=== PATIENT | female | born 1945 | race Caucasian/White ===

== ENCOUNTER 2016-05-13 14:17 | Outpatient (CLI) | payer MEDICARE | END 2016-05-13 14:18 | disposition home or self-care (01) | DX: M17.11 Unilateral primary osteoarthritis, right knee (principal) ==

== ENCOUNTER 2016-05-20 08:00 | Outpatient (CLI) | payer MEDICARE | END 2016-05-20 08:01 | disposition home or self-care (01) | DX: R73.01 Impaired fasting glucose (principal); K22.8 Other specified diseases of esophagus; I10 Essential (primary) hypertension; R22.1 Localized swelling, mass and lump, neck ==

== ENCOUNTER 2016-05-27 13:16 | Outpatient (CLI) | payer MEDICARE | END 2016-05-27 13:17 | disposition home or self-care (01) | DX: K22.8 Other specified diseases of esophagus (principal) ==

== ENCOUNTER 2016-07-05 06:48 | Outpatient (CLI) | payer MEDICARE | END 2016-07-05 06:49 | disposition EMS.NT | DX: R53.1 Weakness (principal) ==

== ENCOUNTER 2016-11-21 14:00 | Outpatient (CLI) | payer MEDICARE ==
[2016-11-21 18:37] LABS: ALBUMIN/GLOBULIN RATIO 1.8 (1.0-2.2); BILIRUBIN,TOTAL 0.6 mg/dL (0.2-1.0); CALCIUM 8.9 mg/dL (8.5-10.3); CREATININE 0.9 mg/dL (0.4-1.0); POTASSIUM 3.5 mmol/L (3.5-5.0); TOTAL PROTEIN 6.4 g/dL (6.7-8.2)
== END 2016-11-21 14:01 | disposition home or self-care (01) ==
LOC: LAB.F 14:00
PROVIDERS: ATTEND Nurse Practitioner Family
DX: I10 Essential (primary) hypertension (principal)
CPT/HCPCS: 36415; 80053

== ENCOUNTER 2017-04-09 13:28 | Outpatient (CLI) | payer MEDICARE ==
--- NOTE | 2017-04-10 11:25 | XRAY Report ---
DATE OF SERVICE: 04/09/2017 CERVICAL SPINE COMPLETE: 04/09/2017 COMPARISON: None. INDICATION: Upper extremity neuropathy. TECHNIQUE: Six views of the cervical spine. FINDINGS: There is a mild to moderate disk space narrowing at C3-C4, C4-C5 and C6-C7. There are multilevel moderate anterior osteophytes. There is no prevertebral soft tissue swelling. The lateral masses appear symmetric. No evidence of acute fracture. There is narrowing of the bony neural foramina as follows: RIGHT: C3-C4, moderate, C4-C5, mild, C5-C6, moderate to severe. LEFT: C3-C4, mild, C4-C5, moderate to severe. C5-C6, mild to moderate. C6-C7, moderate to severe. IMPRESSION: MODERATE TO SEVERE CERVICAL SPONDYLOSIS DETAILED ABOVE. TD: 04/10/2017 11:15 LIV
== END 2017-04-09 13:29 | disposition home or self-care (01) ==
LOC: DI.S 13:28
PROVIDERS: ATTEND Nurse Practitioner Family
DX: M47.892 Other spondylosis, cervical region (principal); R53.1 Weakness
CPT/HCPCS: 72050; 93005

== ENCOUNTER 2017-05-28 13:28 | Outpatient (CLI) | payer MEDICARE ==
[2017-05-28 17:04] VITALS: BP 118/80
--- NOTE | 2017-05-29 16:51 | CARDIAC PROCEDURE NOTE ---
DATE OF SERVICE: 05/28/2017 Physician: DONNA Moody PRIMARY CARE PHYSICIAN: DONNA Hauser. PROCEDURE: Cardiac treadmill stress test. PROCEDURE SYMPTOMS: Dyspnea, weakness, and fatigue. CARDIAC RISK FACTORS: Include age, hypertension, hyperlipidemia, and strong family history of CVAs. PREVIOUS CARDIAC PROCEDURES: Include echocardiogram and a treadmill test. CLINICAL HISTORY: A 71-year-old female without known coronary artery disease. She describes herself as moderately active. INITIAL RESTING VITAL SIGNS: BP 118/80, heart rate 80, height 62 inches, weight 188, BMI 33.0. PROCEDURE AND FINDINGS: Patient identity and date verified. Consent signed. The patient performed treadmill exercise using a Alex protocol, completing 4 minutes 18 seconds, and completing an estimated workload of 7.0 metabolic equivalents. ( predicted time was 4:30 to 5:45.) Maximal blood pressure was 164/84 with a heart rate of 132 beats per minute or 90% of maximum predicted heart rate for age. The blood pressure response to exercise was within normal limits. The patient stopped because of symptoms of tiredness and breathlessness. The resting ECG demonstrated normal sinus rhythm with flat T waves. Maximum ST segment depression was 0. The blood pressure response to exercise was within normal limits. The patient stopped because of tiredness and breathlessness. The resting ECG demonstrated normal sinus rhythm with poor R-wave progression and flat T waves. Maximum ST segment depression was 0. There was one 5-beat run of SVT at a rate of 180 in recovery and 1 isolated PVC. The patient states that she occasionally feels some heart palpitations. FINAL IMPRESSIONS 1. Negative stress electrocardiogram for ischemia by electrocardiographic criteria. 2. Negative stress test clinically for angina. 3. One 5-beat run of rapid SVT. 4. Under-performed predicted sedentary time of 4 minutes 30 seconds. TD: 05/29/2017 16:49 [facility]
--- NOTE | 2017-06-05 10:07 | XRAY Report ---
CARDIOVASCULAR TREADMILL TEST There was no imaging performed for this exam. Procedure notes and results available in the EMR. LIV
== END 2017-05-28 13:29 | disposition home or self-care (01) ==
LOC: DI 13:28
PROVIDERS: ATTEND Nurse Practitioner Family
DX: R06.02 Shortness of breath (principal); R07.9 Chest pain, unspecified; I10 Essential (primary) hypertension; E78.5 Hyperlipidemia, unspecified; Z82.3 Family history of stroke
CPT/HCPCS: 93017

== ENCOUNTER 2017-06-11 08:34 | Outpatient (CLI) | payer MEDICARE ==
[2017-06-11 17:23] LABS: BASOPHILS # (AUTO) 0.1 10^3/uL (0.0-0.1); BASOPHILS % (AUTO) 0.9 %; EOSINOPHILS # (AUTO) 0.4 10^3/uL (0.0-0.7); EOSINOPHILS % (AUTO) 5.3 %; HGB - HEMOGLOBIN 14.1 g/dL (12.0-16.0); LYMPHOCYTES # (AUTO) 1.4 10^3/uL (1.5-3.5); LYMPHOCYTES % (AUTO) 20.8 %; MEAN CORPUSCULAR HEMOGLOBIN 31.5 pg (27.0-31.0); MEAN CORPUSCULAR HGB CONC 33.9 g/dL (32.0-36.0); MEAN PLATELET VOLUME 8.4 fL (7.9-10.8); MONOCYTES # (AUTO) 0.6 10^3/uL (0.0-1.0); MONOCYTES % (AUTO) 8.3 %; NEUTROPHILS # (AUTO) 4.4 10^3/uL (1.5-6.6); NEUTROPHILS % (AUTO) 64.7 %; PLT - PLATELET COUNT 227 10^3/uL (130-450); RED BLOOD COUNT 4.47 10^6/uL (4.20-5.40); WHITE BLOOD COUNT 6.8 x10^3/uL (4.8-10.8)
[2017-06-11 18:31] LABS: HB2 TOTAL 15.1 g/dL; HEMOGLOBIN A1C 0.52 g/dL; HEMOGLOBIN A1C % 5.3 % (4.6-6.2)
[2017-06-11 19:20] LABS: ALBUMIN/GLOBULIN RATIO 1.7 (1.0-2.2); BILIRUBIN,TOTAL 0.7 mg/dL (0.2-1.0); CALCIUM 9.5 mg/dL (8.5-10.3); CREATININE 0.9 mg/dL (0.4-1.0); TOTAL PROTEIN 6.4 g/dL (6.7-8.2)
[2017-06-11 19:26] LABS: CHOL/HDL RATIO 3.7 (<4.4); CHOLESTEROL 131 mg/dL; HDL CHOLESTEROL 35 mg/dL; LDL CHOLESTEROL,CALCULATED 66 mg/dL; LDL/HDL RATIO 1.9 (<4.4); VLDL CHOLESTEROL 30 mg/dL
[2017-06-11 20:12] LABS: % IRON SATURATION 30 % (20-50); IRON 87 ug/dL (28-170); TOTAL IRON BINDING CAPACITY 286 ug/dL (250-450); TRANSFERRIN 204 mg/dL (192-382)
== END 2017-06-11 08:35 | disposition home or self-care (01) ==
LOC: LAB.F 08:34
PROVIDERS: ATTEND Nurse Practitioner Family
DX: I10 Essential (primary) hypertension (principal); E66.9 Obesity, unspecified; R73.01 Impaired fasting glucose; M25.569 Pain in unspecified knee; R06.02 Shortness of breath; R53.83 Other fatigue; R55 Syncope and collapse; R07.9 Chest pain, unspecified
CPT/HCPCS: 36415; 80053; 80061; 82607; 82728; 83036; 83540; 83721; 83880; 84443; 84466; 85025

== ENCOUNTER 2017-06-24 11:17 | Outpatient (CLI) | payer MEDICARE ==
[2017-06-24 18:00] LABS: THYROID STIMULATING HORMONE 2.1 uIU/mL (0.34-5.60)
[2017-06-24 18:02] LABS: FREE T4 (FREE THYROXINE) 0.99 ng/dL (0.58-1.64)
== END 2017-06-24 11:18 | disposition home or self-care (01) ==
LOC: LAB.F 11:17
PROVIDERS: ATTEND Physician Assistant
DX: L65.9 Nonscarring hair loss, unspecified (principal)
CPT/HCPCS: 36415; 84439; 84443

== ENCOUNTER 2017-09-30 16:47 | Outpatient (CLI) | payer MEDICARE ==
--- NOTE | 2017-09-30 22:06 | MRI Report ---
Procedure Date: 09/30/2017 Accession Number: [id number] / [id number] Procedure: MRI - Brain W/O CPT Code: FULL RESULT: EXAM: MRI of the brain without contrast. INDICATION: 72-year-old female with episodes of syncope, weakness and collapse. Please assess. TECHNIQUE: 1. T1 sagittal and fat-saturated T2 coronal. 2. Axial T1 MP rage, FLAIR, T2, T2 star and DWI. COMPARISON: None. FINDINGS: There is mild, generalized, cerebral volume loss with associated, mild, ex-vacuo third/lateral ventriculomegaly. No hydrocephalus. A atgo-xm-ssrewavt amount of white matter disease is identified in the supratentorial brain, manifested as focal and confluent T2 hyperintensities that are scattered throughout the periventricular, deep and subcortical white matter bilaterally. A frontoparietal distribution predominates. Minor, patchy T2 hyperintensity is seen in the noemí. Signal intensity of cortex and white matter is otherwise unremarkable. There appear to be flow voids for the main intracranial arteries. No abnormal diffusion restriction is demonstrated. No evidence of acute or chronic hemorrhage on T2*GRE sequence. Noted is mineralization in the globi pallidi bilaterally. This should not be mistaken as old hemorrhage. No abnormal extra-axial fluid collection. No mass effect or midline shift. Limited assessment of the orbits reveals no gross pathology. There is minor mucosal thickening scattered throughout the ethmoid air cells. There appears to be minor mucosal thickening in the posterior recess of the right maxillary sinus. The paranasal sinuses are otherwise clear. A tiny amount of fluid is seen in both mastoids of uncertain etiology but of doubtful clinical significance. No soft tissue swelling is identified overlying either mastoid and there is no evidence of an obstructing nasopharyngeal mass. Marrow signal intensity in the regional skeletal structures is unremarkable. IMPRESSION: 1. Age appropriate senescent change. 2. A vmsi-rb-lgrivuqu amount of white matter disease is identified, likely representing chronic microangiopathy. 3. No other significant intracranial findings on this unenhanced brain MRI. In particular, no evidence of infarction, hemorrhage, space-occupying mass lesion or other acute/subacute intracranial pathology.
== END 2017-09-30 16:48 | disposition home or self-care (01) ==
LOC: DI 16:47
PROVIDERS: ATTEND Nurse Practitioner Family
DX: R55 Syncope and collapse (principal); R53.1 Weakness; R90.82 White matter disease, unspecified
CPT/HCPCS: 70551

== ENCOUNTER 2018-06-30 09:48 | Outpatient (CLI) | payer MEDICARE ==
[2018-06-30 18:29] LABS: BASOPHILS # (AUTO) 0.1 10^3/uL (0.0-0.1); EOSINOPHILS # (AUTO) 0.5 10^3/uL (0.0-0.7); EOSINOPHILS % (AUTO) 6.9 %; HGB - HEMOGLOBIN 14.4 g/dL (12.0-16.0); LYMPHOCYTES # (AUTO) 1.6 10^3/uL (1.5-3.5); LYMPHOCYTES % (AUTO) 24.2 %; MEAN CORPUSCULAR HEMOGLOBIN 32.4 pg (27.0-31.0); MEAN CORPUSCULAR HGB CONC 34.3 g/dL (32.0-36.0); MEAN CORPUSCULAR VOLUME 94.7 fL (81.0-99.0); MEAN PLATELET VOLUME 8.9 fL (7.9-10.8); MONOCYTES # (AUTO) 0.6 10^3/uL (0.0-1.0); MONOCYTES % (AUTO) 8.7 %; NEUTROPHILS % (AUTO) 59.2 %; PLT - PLATELET COUNT 220 10^3/uL (130-450); RED BLOOD COUNT 4.43 10^6/uL (4.20-5.40); RED CELL DISTRIBUTION WIDTH 13.2 % (12.0-15.0); WHITE BLOOD COUNT 6.7 x10^3/uL (4.8-10.8)
[2018-06-30 18:46] LABS: HB2 TOTAL 15.6 g/dL; HEMOGLOBIN A1C 0.55 g/dL; HEMOGLOBIN A1C % 5.4 % (4.6-6.2)
[2018-06-30 18:49] LABS: ALBUMIN 4.1 g/dL (3.2-5.5); ALBUMIN/GLOBULIN RATIO 1.8 (1.0-2.2); ALKALINE PHOSPHATASE 58 IU/L (42-121); ALT ALANINE AMINOTRANSFERASE 21 IU/L (10-60); AST ASPARTATE AMINOTRANSFERASE 21 IU/L (10-42); BILIRUBIN,TOTAL 1.1 mg/dL (0.2-1.0); BUN - BLOOD UREA NITROGEN 20 mg/dL (6-20); CALCIUM 9.6 mg/dL (8.5-10.3); CARBON DIOXIDE - CO2 28 mmol/L (21-32); CHLORIDE 103 mmol/L (101-111); CHOL/HDL RATIO 3.6 (<4.4); CHOLESTEROL 131 mg/dL; CREATININE 0.9 mg/dL (0.4-1.0); GFR - MDRD 61 (>89); GLUCOSE 117 mg/dL (70-100); HDL CHOLESTEROL 36 mg/dL; LDL CHOLESTEROL,CALCULATED 62 mg/dL; LDL/HDL RATIO 1.7 (<4.4); SODIUM 139 mmol/L (135-145); TOTAL PROTEIN 6.4 g/dL (6.7-8.2); VLDL CHOLESTEROL 33 mg/dL
== END 2018-06-30 09:49 | disposition home or self-care (01) ==
LOC: LAB.F 09:48
PROVIDERS: ATTEND Nurse Practitioner
DX: Z00.00 Encounter for general adult medical examination without abnormal findings (principal); I10 Essential (primary) hypertension; E78.2 Mixed hyperlipidemia
CPT/HCPCS: 36415; 80053; 80061; 83036; 83721; 84443; 85025

== ENCOUNTER 2018-07-01 15:30 | Outpatient (CLI) | payer MEDICARE ==
--- NOTE | 2018-07-02 10:18 | XRAY Report ---
Reason: KNEE PAIN CHRONIC RIGHT LEFT Procedure Date: 07/01/2018 Accession Number: [id number] / [id number] Procedure: XR - Knee 3 View BILAT CPT Code: FULL RESULT: EXAMS: 1. Right Knee Radiography 2. Left Knee Radiography EXAM DATE:07/01/2018 03:52 PM. CLINICAL HISTORY:KNEE PAIN CHRONIC RIGHT LEFT. COMPARISON: KNEE 3 VIEW RT 05/13/2016 2:28 PM (report not presently available). TECHNIQUE: 3 views each. FINDINGS: Right Knee: Bones: Normal. No fractures or bone lesions. Joints: Normal. No effusion. No subluxations. Soft Tissues: Normal. No soft tissue swelling. Left Knee: Bones: Normal. No fractures or bone lesions. Joints: Normal. No effusion. No subluxations. Soft Tissues: Normal. No soft tissue swelling. IMPRESSION: No acute bony abnormality. RADIA
== END 2018-07-01 15:31 | disposition home or self-care (01) ==
LOC: DI 15:30
PROVIDERS: ATTEND Nurse Practitioner
DX: M25.562 Pain in left knee (principal); M25.561 Pain in right knee; G89.29 Other chronic pain

== ENCOUNTER 2018-07-09 12:46 | Outpatient (CLI) | payer MEDICARE ==
--- NOTE | 2018-07-09 13:47 | CT Report ---
Reason: BLURRED VISION, INTERMITTENT, HTN Procedure Date: 07/09/2018 Accession Number: [id number] / [id number] Procedure: CT - HEAD WO CPT Code: FULL RESULT: EXAM: CT HEAD EXAM DATE: 07/09/2018 01:07 PM. CLINICAL HISTORY: Blurred vision, intermittent, hypertension. COMPARISON: BRAIN W/O 09/30/2017 4:50 PM. TECHNIQUE: Multiaxial CT images were obtained from the foramen magnum to the vertex. Reformats: Sagittal and coronal. IV contrast: None. In accordance with CT protocol optimization, one or more of the following dose reduction techniques were utilized for this exam: automated exposure control, adjustment of mA and/or KV based on patient size, or use of iterative reconstructive technique. FINDINGS: Parenchyma: No intraparenchymal hemorrhage. No evidence of mass, midline shift, or CT findings of infarction. Du-white differentiation is distinct. There is patchy low density in the bifrontal periventricular white matter consistent with chronic microvascular ischemic change. This is also noted on the comparison MRI. Extraaxial Spaces: Normal for age. No subdural or epidural collections identified. Ventricles: Normal in size and position. Sinuses and Orbits: Small air-fluid levels are noted within both maxillary sinuses. Note: Tiny air-fluid level is noted in the right maxillary sinus on MRI of 09/30/2017. No bone dehiscence. Remaining paranasal sinuses are clear. Bones: No evidence of fracture or calvarial defect. Other: There is mild vertebrobasilar dolichoectasia with a high position of the tip of basilar. IMPRESSION: 1. Stable senescent changes. No CT evidence of acute infarction. 2. Mild bilateral maxillary sinusitis. 3. Mild vertebrobasilar dolichoectasia as described with superiorly positioned tip of basilar. 4. If there is clinical concern for potential dysfunction of cranial nerves 3, 4 or 6 given symptoms, recommend dedicated brain and orbital MRI. RADIA
== END 2018-07-09 12:47 | disposition home or self-care (01) ==
LOC: DI 12:46
PROVIDERS: ATTEND Nurse Practitioner
DX: H53.8 Other visual disturbances (principal); I10 Essential (primary) hypertension; J32.0 Chronic maxillary sinusitis
CPT/HCPCS: 70450

== ENCOUNTER 2018-09-09 09:44 | Day surgery (SDC) | payer MEDICARE ==
[2018-09-09] MEDS ORDERED: LACTATED RINGERS 1,000 ML IV ONE (10:25)
[2018-09-09] MEDS ORDERED: LIDO GARGLE 30 ML BOTTLE ONE (11:10)
[2018-09-09] MEDS ORDERED: fentaNYL 250 MCG/5 ML VIAL IVP ONE (11:12)
[2018-09-09] MEDS ORDERED: MIDAZOLAM 2 MG/2 ML VIAL IVP ONE (11:12)
[2018-09-09] MEDS ORDERED: LIDO GARGLE 30 ML BOTTLE TOP ONE (11:18)
[2018-09-09 12:50] VITALS: BP 133/85
== END 2018-09-09 09:45 | disposition home or self-care (01) ==
LOC: SDS 09:44
PROVIDERS: ATTEND Surgery
PROC: 0DJD8ZZ Inspection of Lower Intestinal Tract, Via Natural or Artificial Opening Endoscopic (ICD-10-PCS; principal; 2018-09-09 11:00)
PROC: 0DB58ZX Excision of Esophagus, Via Natural or Artificial Opening Endoscopic, Diagnostic (ICD-10-PCS; 2018-09-09 11:00)
DX: Z12.11 Encounter for screening for malignant neoplasm of colon (principal); K21.0 Gastro-esophageal reflux disease with esophagitis; K64.8 Other hemorrhoids; I10 Essential (primary) hypertension; E66.9 Obesity, unspecified; Z79.899 Other long term (current) drug therapy; Z80.0 Family history of malignant neoplasm of digestive organs; Z68.32 Body mass index [BMI] 32.0-32.9, adult
CPT/HCPCS: 43239; A9270; G0121; J3010; J7120

== ENCOUNTER 2019-05-09 11:44 | Outpatient (CLI) | payer MEDICARE ==
--- NOTE | 2019-05-10 05:33 | XRAY Report ---
Reason: M25.369 KNEE JOINT INSTABILITY LT Procedure Date: 05/09/2019 Accession Number: [id number] / [id number] Procedure: XRS - Knee 2 View LT CPT Code: Final Report FULL RESULT: EXAM: LEFT KNEE RADIOGRAPHY EXAM DATE: 05/09/2019 12:00 PM. CLINICAL HISTORY: M25. 369 KNEE JOINT INSTABILITY LT. COMPARISON: FOOT 2 VIEW LT 05/09/2019 12:14 PM KNEE 3 VIEW BILAT 07/01/2018 3:40 PM. TECHNIQUE: 3 views. FINDINGS: Bones: No acute displaced fractures or suspicious bony lesion. Joints: No dislocation. No significant effusion. Soft Tissues: No significant soft tissue swelling. IMPRESSION: No acute osseous abnormality demonstrated. RADIA
--- NOTE | 2019-05-10 05:39 | XRAY Report ---
Reason: M79.672 FOOT JOINT PAIN LT Procedure Date: 05/09/2019 Accession Number: [id number] / [id number] Procedure: XRS - Foot 2 View LT CPT Code: Final Report FULL RESULT: EXAM: LEFT FOOT RADIOGRAPHY EXAM DATE: 05/09/2019 12:00 PM CLINICAL HISTORY: M79.672 Foot joint pain left. COMPARISON: None. TECHNIQUE: 3 views. FINDINGS: Bones: No acute displaced fractures or suspicious bony lesion. Small plantar calcaneal spur. Joints: There is mild hallux valgus deformity and mild to moderate metatarsus varus primus deformity. There is moderate first MTP degenerative joint disease. There is also moderate degenerative change between the bases of the first and second metatarsals. Soft Tissues: Bunion formation at the first MTP joint. IMPRESSION: No acute osseous abnormality demonstrated. RADIA
== END 2019-05-09 11:45 | disposition home or self-care (01) ==
LOC: DI.S 11:44
PROVIDERS: ATTEND Registered Nurse
DX: M25.362 Other instability, left knee (principal); M79.672 Pain in left foot

== ENCOUNTER 2019-09-15 07:00 | Outpatient (CLI) | payer MEDICARE | END 2019-09-15 23:59 | disposition home or self-care (01) | LOC: LAB.R 07:00 | PROVIDERS: ATTEND Family Medicine | DX: N39.0 Urinary tract infection, site not specified (principal) | CPT/HCPCS: 87086 ==

== ENCOUNTER 2019-09-26 13:48 | Outpatient (CLI) | payer MEDICARE | END 2019-09-26 13:49 | disposition home or self-care (01) | LOC: LAB 13:48 | PROVIDERS: ATTEND Registered Nurse | DX: Z11.59 Encounter for screening for other viral diseases (principal) | CPT/HCPCS: 81599 ==

== ENCOUNTER 2019-10-14 07:35 | Outpatient (CLI) | payer MEDICARE ==
[2019-10-14 15:01] LABS: BASOPHILS # (AUTO) 0.1 10^3/uL (0.0-0.1); BASOPHILS % (AUTO) 0.9 %; EOSINOPHILS # (AUTO) 0.4 10^3/uL (0.0-0.7); EOSINOPHILS % (AUTO) 6.5 %; HGB - HEMOGLOBIN 14.9 g/dL (12.0-16.0); LYMPHOCYTES # (AUTO) 1.5 10^3/uL (1.5-3.5); LYMPHOCYTES % (AUTO) 22.6 %; MEAN CORPUSCULAR HEMOGLOBIN 32.5 pg (27.0-31.0); MEAN CORPUSCULAR HGB CONC 33.9 g/dL (32.0-36.0); MEAN CORPUSCULAR VOLUME 96.1 fL (81.0-99.0); MEAN PLATELET VOLUME 10.5 fL (7.9-10.8); MONOCYTES # (AUTO) 0.7 10^3/uL (0.0-1.0); MONOCYTES % (AUTO) 10.5 %; NEUTROPHILS # (AUTO) 3.9 10^3/uL (1.5-6.6); NEUTROPHILS % (AUTO) 59.2 %; PLT - PLATELET COUNT 200 10^3/uL (130-450); RED BLOOD COUNT 4.58 10^6/uL (4.20-5.40); RED CELL DISTRIBUTION WIDTH 12.8 % (12.0-15.0); WHITE BLOOD COUNT 6.6 x10^3/uL (4.8-10.8)
[2019-10-14 15:37] LABS: ALBUMIN 4.2 g/dL (3.2-5.5); ALBUMIN/GLOBULIN RATIO 2.2 (1.0-2.2); ALKALINE PHOSPHATASE 77 IU/L (42-121); ALT ALANINE AMINOTRANSFERASE 18 IU/L (10-60); AST ASPARTATE AMINOTRANSFERASE 18 IU/L (10-42); BILIRUBIN,TOTAL 0.8 mg/dL (0.2-1.0); BUN - BLOOD UREA NITROGEN 15 mg/dL (6-20); CALCIUM 9.3 mg/dL (8.5-10.3); CARBON DIOXIDE - CO2 25 mmol/L (21-32); CHLORIDE 106 mmol/L (101-111); CHOL/HDL RATIO 4.8 (<4.4); CHOLESTEROL 160 mg/dL; CREATININE 0.9 mg/dL (0.4-1.0); GLUCOSE 119 mg/dL (70-100); HDL CHOLESTEROL 33 mg/dL; LDL CHOLESTEROL,CALCULATED 74 mg/dL; LDL/HDL RATIO 2.2 (<4.4); SODIUM 141 mmol/L (135-145); TOTAL PROTEIN 6.1 g/dL (6.7-8.2); VLDL CHOLESTEROL 53 mg/dL
== END 2019-10-14 07:36 | disposition home or self-care (01) ==
LOC: LAB.S 07:35
PROVIDERS: ATTEND Registered Nurse
DX: I10 Essential (primary) hypertension (principal); E78.2 Mixed hyperlipidemia
CPT/HCPCS: 36415; 80053; 80061; 83721; 84443; 85025

== ENCOUNTER 2019-11-25 08:00 | Outpatient (CLI) | payer MEDICARE | END 2019-11-25 23:59 | disposition home or self-care (01) | LOC: LAB.R 08:00 | PROVIDERS: ATTEND Family Medicine | DX: N30.90 Cystitis, unspecified without hematuria (principal) | CPT/HCPCS: 87086 ==

== ENCOUNTER 2019-12-13 12:11 | Outpatient (CLI) | payer MEDICARE | END 2019-12-13 12:12 | disposition home or self-care (01) | LOC: COV 12:11 | PROVIDERS: ATTEND Family Medicine | DX: R05 Cough (principal); R06.02 Shortness of breath; R53.83 Other fatigue; R09.81 Nasal congestion; Z20.828 Contact with and (suspected) exposure to other viral communicable diseases ==

== ENCOUNTER 2019-12-22 14:35 | Outpatient (CLI) | payer MEDICARE ==
--- NOTE | 2019-12-22 16:16 | Ultrasound Report ---
PROCEDURE: Retroperitoneal INDICATIONS: UTI TECHNIQUE: Real-time scanning was performed of the retroperitoneal organs, with image documentation. COMPARISON: None. FINDINGS: Kidneys: Kidneys are normal in size. Right kidney measures 10.6 cm long; left kidney measures 10.5 cm long. Right renal cortical thickness is 1.4 cm; left renal cortical thickness is 1.3 cm. No julieth d masses, hydronephrosis, or nephrolithiasis. There are bilateral renal cysts, the largest on the rig ht measures 3.7 cm and the largest on the left measures 1.6 cm. Punctate echogenic foci within the le ft lower pole may represent nonobstructing calculi. Pancreas: Visualized portions of the pancreas are sonographically normal. Aorta: Visualized aorta is normal in caliber at 3 cm or less. Iliac arteries: Proximal common iliac arteries are normal in caliber at 2.5 cm or less. IVC: Intrahepatic inferior vena cava is patent. Miscellaneous: No free abdominal fluid. IMPRESSION: 1. No hydronephrosis. 2. Possible nonobstructive left nephrolithiasis versus echogenic appearance. 3. Bilateral simple renal cysts. Reviewed by: Brigette Hudson MD on 12/22/2019 4:15 PM PDT Approved by: Brigette Hudson MD on 12/22/2019 4:15 PM PDT Station ID: [id number]
== END 2019-12-22 14:36 | disposition home or self-care (01) ==
LOC: DI 14:35
PROVIDERS: ATTEND Family Medicine
DX: N39.0 Urinary tract infection, site not specified (principal); N28.1 Cyst of kidney, acquired
CPT/HCPCS: 76770

== ENCOUNTER 2020-01-22 08:00 | Outpatient (CLI) | payer MEDICARE ==
[2020-01-22 17:46] LABS: BILIRUBIN,URINE NEGATIVE (NEGATIVE); GLUCOSE, URINE (UA) 100 mg/dL (NEGATIVE); KETONES,URINE (UA) NEGATIVE (NEGATIVE); LEUKOCYTE ESTERASE, URINE SMALL (NEGATIVE); NITRITE,URINE POSITIVE (NEGATIVE); OCCULT BLOOD,URINE SMALL (NEGATIVE); PH,URINE 5.5 PH (5.0-7.5); PROTEIN,URINE TRACE mg/dL (NEGATIVE); UROBILINOGEN,URINE 2 E.U./dL (NORMAL)
[2020-01-22 17:53] LABS: CLARITY,URINE CLOUDY (CLEAR)
[2020-01-22 17:58] LABS: BACTERIA,URINE Few /HPF (None Seen); SQUAMOUS EPITHELIAL CELL,UR RARE Squamous (<= Few)
== END 2020-01-22 23:59 | disposition home or self-care (01) ==
LOC: LAB.R 08:00
PROVIDERS: ATTEND Physician Assistant Medical
DX: R30.0 Dysuria (principal)
CPT/HCPCS: 81001; 87086

== ENCOUNTER 2020-05-31 08:00 | Outpatient (CLI) | payer MEDICARE ==
[2020-05-31 20:22] LABS: CREATININE,URINE 251.1 mg/dL
[2020-05-31 20:26] LABS: BUN - BLOOD UREA NITROGEN 23 mg/dL (6-20); CALCIUM 8.9 mg/dL (8.5-10.3); CARBON DIOXIDE - CO2 24 mmol/L (21-32); CHLORIDE 106 mmol/L (101-111); CHOL/HDL RATIO 4.5 (<4.4); CHOLESTEROL 147 mg/dL; GFR - MDRD 54 (>89); GLUCOSE 108 mg/dL (70-100); HDL CHOLESTEROL 33 mg/dL; LDL CHOLESTEROL,CALCULATED 72 mg/dL; LDL/HDL RATIO 2.2 (<4.4); POTASSIUM 3.4 mmol/L (3.5-5.0); SODIUM 137 mmol/L (135-145); TRIGLYCERIDES 209 mg/dL; VLDL CHOLESTEROL 42 mg/dL
[2020-05-31 20:31] LABS: ESTIMATED AVERAGE GLUCOSE 108 mg/dL (70-100); HEMOGLOBIN A1c% 5.4 % (4.27-6.07)
== END 2020-05-31 23:59 | disposition home or self-care (01) ==
LOC: LAB.S 08:00
PROVIDERS: ATTEND Physician Assistant Medical
DX: I10 Essential (primary) hypertension (principal); E78.2 Mixed hyperlipidemia; R06.02 Shortness of breath; R30.0 Dysuria; R81 Glycosuria
CPT/HCPCS: 36415; 80048; 80061; 82043; 82570; 83036; 83721; 87086

== ENCOUNTER 2020-10-09 07:55 | Outpatient (CLI) | payer MEDICARE ==
[2020-10-09 17:10] LABS: BASOPHILS # (AUTO) 0.1 10^3/uL (0.0-0.1); BASOPHILS % (AUTO) 0.8 %; EOSINOPHILS # (AUTO) 0.5 10^3/uL (0.0-0.7); EOSINOPHILS % (AUTO) 6.1 %; HCT - HEMATOCRIT 46.7 % (37.0-47.0); HGB - HEMOGLOBIN 15.1 g/dL (12.0-16.0); LYMPHOCYTES # (AUTO) 1.7 10^3/uL (1.5-3.5); MEAN CORPUSCULAR HEMOGLOBIN 31.3 pg (27.0-31.0); MEAN CORPUSCULAR HGB CONC 32.3 g/dL (32.0-36.0); MEAN CORPUSCULAR VOLUME 96.9 fL (81.0-99.0); MEAN PLATELET VOLUME 10.1 fL (7.9-10.8); MONOCYTES # (AUTO) 0.7 10^3/uL (0.0-1.0); MONOCYTES % (AUTO) 9.4 %; NEUTROPHILS # (AUTO) 4.5 10^3/uL (1.5-6.6); NEUTROPHILS % (AUTO) 60.3 %; PLT - PLATELET COUNT 221 10^3/uL (130-450); RED BLOOD COUNT 4.82 10^6/uL (4.20-5.40); RED CELL DISTRIBUTION WIDTH 12.8 % (12.0-15.0); WHITE BLOOD COUNT 7.5 x10^3/uL (4.8-10.8)
[2020-10-09 17:23] LABS: THYROID STIMULATING HORMONE 1.71 uIU/mL (0.34-5.60)
[2020-10-09 17:32] LABS: ALBUMIN 4.1 g/dL (3.2-5.5); ALBUMIN/GLOBULIN RATIO 1.8 (1.0-2.2); ALKALINE PHOSPHATASE 72 IU/L (42-121); ALT ALANINE AMINOTRANSFERASE 19 IU/L (10-60); AST ASPARTATE AMINOTRANSFERASE 17 IU/L (10-42); BILIRUBIN,TOTAL 0.7 mg/dL (0.2-1.0); BUN - BLOOD UREA NITROGEN 12 mg/dL (6-20); CALCIUM 8.9 mg/dL (8.5-10.3); CARBON DIOXIDE - CO2 29 mmol/L (21-32); CHLORIDE 104 mmol/L (101-111); CHOL/HDL RATIO 3.5 (<4.4); CHOLESTEROL 137 mg/dL; CREATININE 0.8 mg/dL (0.4-1.0); GFR - MDRD 70 (>89); GLUCOSE 116 mg/dL (70-100); HDL CHOLESTEROL 39 mg/dL; LDL CHOLESTEROL,CALCULATED 63 mg/dL; LDL/HDL RATIO 1.6 (<4.4); SODIUM 140 mmol/L (135-145); TOTAL PROTEIN 6.4 g/dL (6.7-8.2); TRIGLYCERIDES 175 mg/dL; VLDL CHOLESTEROL 35 mg/dL
== END 2020-10-09 07:56 | disposition home or self-care (01) ==
LOC: LAB.S 07:55
PROVIDERS: ATTEND Registered Nurse
DX: I10 Essential (primary) hypertension (principal); E78.2 Mixed hyperlipidemia; R06.02 Shortness of breath
CPT/HCPCS: 36415; 80053; 80061; 83721; 84443; 85025

== ENCOUNTER 2020-12-02 12:00 | Outpatient (CLI) | payer MEDICARE ==
[2020-12-02 17:47] LABS: BILIRUBIN,URINE NEGATIVE (NEGATIVE); GLUCOSE, URINE (UA) 100 mg/dL (NEGATIVE); KETONES,URINE (UA) NEGATIVE (NEGATIVE); LEUKOCYTE ESTERASE, URINE SMALL (NEGATIVE); NITRITE,URINE POSITIVE (NEGATIVE); OCCULT BLOOD,URINE TRACE-INTA (NEGATIVE); PROTEIN,URINE NEGATIVE (NEGATIVE); UROBILINOGEN,URINE 1 (NORMAL) E.U./dL (NORMAL)
[2020-12-02 17:49] LABS: CLARITY,URINE CLEAR (CLEAR)
[2020-12-02 17:52] LABS: BACTERIA,URINE Few /HPF (None Seen); MUCUS,URINE Few Strands; RBC,URINE 0-5 /HPF (0-5); SQUAMOUS EPITHELIAL CELL,UR FEW Squamous (<= Few)
== END 2020-12-02 23:59 | disposition home or self-care (01) ==
LOC: LAB.S 12:00
PROVIDERS: ATTEND Emergency Medicine
DX: R30.0 Dysuria (principal)
CPT/HCPCS: 81001; 87086

== ENCOUNTER 2021-01-25 09:12 | Outpatient (CLI) | payer MEDICARE ==
[2021-01-25 14:36] LABS: CALCIUM 9.4 mg/dL (8.5-10.3); CREATININE 0.9 mg/dL (0.4-1.0); POTASSIUM 3.8 mmol/L (3.5-5.0)
[2021-01-25 14:38] LABS: ESTIMATED AVERAGE GLUCOSE 105 mg/dL (70-100); HEMOGLOBIN A1c% 5.3 % (4.27-6.07)
[2021-01-25 14:54] LABS: CREATININE,URINE 131.9 mg/dL; MICROALBUM/CREATININE RATIO,UR 6.1 ug/mg (<30.0); MICROALBUMIN,URINE 0.8 mg/dL (0-300.0)
== END 2021-01-25 09:13 | disposition home or self-care (01) ==
LOC: LAB.S 09:12
PROVIDERS: ATTEND Registered Nurse
DX: R81 Glycosuria (principal)
CPT/HCPCS: 36415; 80048; 82043; 82570; 83036

== ENCOUNTER 2022-01-23 10:21 | Outpatient (CLI) | payer MEDICARE ==
[2022-01-23 14:10] LABS: BASOPHILS # (AUTO) 0.1 10^3/uL (0.0-0.1); BASOPHILS % (AUTO) 1.1 %; EOSINOPHILS # (AUTO) 0.4 10^3/uL (0.0-0.7); EOSINOPHILS % (AUTO) 5.7 %; HCT - HEMATOCRIT 46.6 % (37.0-47.0); HGB - HEMOGLOBIN 15.7 g/dL (12.0-16.0); LYMPHOCYTES # (AUTO) 1.6 10^3/uL (1.5-3.5); LYMPHOCYTES % (AUTO) 22.4 %; MEAN CORPUSCULAR HEMOGLOBIN 31.3 pg (27.0-31.0); MEAN CORPUSCULAR HGB CONC 33.7 g/dL (32.0-36.0); MEAN PLATELET VOLUME 10.1 fL (7.9-10.8); MONOCYTES # (AUTO) 0.7 10^3/uL (0.0-1.0); MONOCYTES % (AUTO) 9.4 %; NEUTROPHILS # (AUTO) 4.3 10^3/uL (1.5-6.6); PLT - PLATELET COUNT 227 10^3/uL (130-450); RED BLOOD COUNT 5.01 10^6/uL (4.20-5.40); RED CELL DISTRIBUTION WIDTH 12.5 % (12.0-15.0)
[2022-01-23 14:37] LABS: ALBUMIN 4.1 g/dL (3.2-5.5); ALBUMIN/GLOBULIN RATIO 1.6 (1.0-2.2); ALKALINE PHOSPHATASE 66 IU/L (42-121); ALT ALANINE AMINOTRANSFERASE 18 IU/L (10-60); AST ASPARTATE AMINOTRANSFERASE 20 IU/L (10-42); BUN - BLOOD UREA NITROGEN 19 mg/dL (6-20); CALCIUM 9.1 mg/dL (8.5-10.3); CARBON DIOXIDE - CO2 26 mmol/L (21-32); CHLORIDE 104 mmol/L (101-111); CHOL/HDL RATIO 3.8 (<4.4); CHOLESTEROL 135 mg/dL; CREATININE 0.9 mg/dL (0.4-1.0); GFR - MDRD 61 (>89); GLUCOSE 125 mg/dL (70-100); HDL CHOLESTEROL 36 mg/dL; LDL CHOLESTEROL,CALCULATED 76 mg/dL; LDL/HDL RATIO 2.1 (<4.4); POTASSIUM 3.6 mmol/L (3.5-5.0); SODIUM 138 mmol/L (135-145); TOTAL PROTEIN 6.6 g/dL (6.7-8.2); TRIGLYCERIDES 116 mg/dL; VLDL CHOLESTEROL 23 mg/dL
[2022-01-23 14:55] LABS: THYROID STIMULATING HORMONE 2.83 uIU/mL (0.34-5.60)
== END 2022-01-23 10:22 | disposition home or self-care (01) ==
LOC: LAB.S 10:21
PROVIDERS: ATTEND Registered Nurse
DX: E78.1 Pure hyperglyceridemia (principal); R73.01 Impaired fasting glucose; Z79.899 Other long term (current) drug therapy; Z13.0 Encounter for screening for diseases of the blood and blood-forming organs and certain disorders involving the immune mechanism
CPT/HCPCS: 36415; 80053; 80061; 83721; 84443; 85025

== ENCOUNTER 2022-11-06 15:01 | Outpatient (CLI) | payer MEDICARE | END 2022-11-06 15:02 | disposition home or self-care (01) | LOC: DI 15:01 | PROVIDERS: ATTEND Registered Nurse | DX: I44.4 Left anterior fascicular block (principal); R53.83 Other fatigue; R07.89 Other chest pain | CPT/HCPCS: 93306 ==

== ENCOUNTER 2023-01-15 08:00 | Outpatient (CLI) | payer MEDICARE | END 2023-01-15 23:59 | disposition home or self-care (01) | LOC: LAB.S 08:00 | PROVIDERS: ATTEND Physician Assistant | DX: R30.0 Dysuria (principal) | CPT/HCPCS: 87086 ==

== ENCOUNTER 2023-01-28 08:00 | Outpatient (CLI) | payer MEDICARE | END 2023-01-28 23:59 | disposition home or self-care (01) | LOC: LAB.S 08:00 | PROVIDERS: ATTEND Physician Assistant | DX: J06.9 Acute upper respiratory infection, unspecified (principal); Z20.822 Contact with and (suspected) exposure to COVID-19 ==

== ENCOUNTER 2023-01-28 12:06 | Outpatient (CLI) | payer MEDICARE ==
--- NOTE | 2023-01-28 12:56 | XRAY Report ---
PROCEDURE: Chest 2 View X-Ray INDICATIONS: UPPER RESPIRATORY INFECTION TECHNIQUE: 2 views of the chest were acquired. COMPARISON: None. FINDINGS: Surgical changes and devices: None. Lungs and pleura: No pleural effusions or pneumothorax. Lungs are clear. Mediastinum: Mediastinal contours appear normal. Heart size is normal. Bones and chest wall: No suspicious bony lesions. Overlying soft tissues appear unremarkable. IMPRESSION: No acute cardiopulmonary process. Reviewed by: Rox Guzamn MD on 01/28/2023 12:54 PM PDT Approved by: Rox Guzman MD on 01/28/2023 12:54 PM PDT Station ID: [id number]
== END 2023-01-28 23:59 | disposition home or self-care (01) ==
LOC: DI.S 12:06
PROVIDERS: ATTEND Physician Assistant
DX: J06.9 Acute upper respiratory infection, unspecified (principal)

== ENCOUNTER 2023-04-10 08:00 | Outpatient (CLI) | payer MEDICARE | END 2023-04-10 23:59 | disposition home or self-care (01) | LOC: LAB.S 08:00 | PROVIDERS: ATTEND Physician Assistant | DX: N39.0 Urinary tract infection, site not specified (principal) | CPT/HCPCS: 87086; 87181 ==

== ENCOUNTER 2023-06-26 09:22 | Outpatient (CLI) | payer MEDICARE, MEDICAID ==
[2023-06-26 15:15] LABS: BASOPHILS # (AUTO) 0.1 10^3/uL (0.0-0.1); BASOPHILS % (AUTO) 0.9 %; EOSINOPHILS # (AUTO) 0.4 10^3/uL (0.0-0.7); EOSINOPHILS % (AUTO) 4.9 %; HCT - HEMATOCRIT 44.9 % (37.0-47.0); HGB - HEMOGLOBIN 14.9 g/dL (12.0-16.0); LYMPHOCYTES # (AUTO) 1.8 10^3/uL (1.5-3.5); LYMPHOCYTES % (AUTO) 23.5 %; MEAN CORPUSCULAR HEMOGLOBIN 32.1 pg (27.0-31.0); MEAN CORPUSCULAR HGB CONC 33.2 g/dL (32.0-36.0); MEAN CORPUSCULAR VOLUME 96.8 fL (81.0-99.0); MEAN PLATELET VOLUME 9.9 fL (7.9-10.8); MONOCYTES # (AUTO) 0.8 10^3/uL (0.0-1.0); MONOCYTES % (AUTO) 10.7 %; NEUTROPHILS # (AUTO) 4.7 10^3/uL (1.5-6.6); NEUTROPHILS % (AUTO) 59.9 %; PLT - PLATELET COUNT 200 10^3/uL (130-450); RED BLOOD COUNT 4.64 10^6/uL (4.20-5.40); RED CELL DISTRIBUTION WIDTH 12.4 % (12.0-15.0); WHITE BLOOD COUNT 7.8 x10^3/uL (4.8-10.8)
[2023-06-26 15:53] LABS: ALBUMIN/GLOBULIN RATIO 1.9 (1.0-2.2); ALKALINE PHOSPHATASE 97 IU/L (42-121); ALT ALANINE AMINOTRANSFERASE 22 IU/L (10-60); AST ASPARTATE AMINOTRANSFERASE 18 IU/L (10-42); BILIRUBIN,TOTAL 0.9 mg/dL (0.2-1.0); BUN - BLOOD UREA NITROGEN 23 mg/dL (6-20); CALCIUM 9.4 mg/dL (8.5-10.3); CARBON DIOXIDE - CO2 28 mmol/L (21-32); CHLORIDE 105 mmol/L (101-111); CHOL/HDL RATIO 4.1 (<4.4); CHOLESTEROL 111 mg/dL; GFR - MDRD 53 (>89); GLUCOSE 102 mg/dL (74-104); HDL CHOLESTEROL 27 mg/dL; LDL CHOLESTEROL,CALCULATED 59 mg/dL; LDL/HDL RATIO 2.2 (<4.4); POTASSIUM 3.9 mmol/L (3.5-4.5); SODIUM 137 mmol/L (135-145); TOTAL PROTEIN 6.1 g/dL (6.4-8.9); TRIGLYCERIDES 126 mg/dL (48-352); VLDL CHOLESTEROL 25 mg/dL
[2023-06-26 16:03] LABS: THYROID STIMULATING HORMONE 2.48 uIU/mL (0.34-5.60)
[2023-06-26 20:29] LABS: ESTIMATED AVERAGE GLUCOSE 105 mg/dL (70-100); HEMOGLOBIN A1c% 5.3 % (4.27-6.07)
== END 2023-06-26 09:23 | disposition home or self-care (01) ==
LOC: LAB.S 09:22
PROVIDERS: ATTEND Nurse Practitioner Family
DX: R73.03 Prediabetes (principal); E78.1 Pure hyperglyceridemia; E66.9 Obesity, unspecified
CPT/HCPCS: 36415; 80053; 80061; 83036; 83721; 84443; 85025

== ENCOUNTER 2023-06-29 13:09 | Outpatient (CLI) | payer MEDICARE, MEDICAID ==
--- NOTE | 2023-06-30 10:09 | Mammography Report ---
BILATERAL DIGITAL SCREENING MAMMOGRAM 3D/2D: 06/29/2023 CLINICAL: Routine screening. Family history of breast cancer. Comparison is made to exams dated: 02/15/2014 mammogram and 07/08/2011 mammogram - [facility]. There are scattered areas of fibroglandular density in both breasts (category b / 25%-50% glandular t issue). No significant masses, calcifications, or other findings are seen in either breast. There has been no significant interval change. IMPRESSION: NEGATIVE There is no mammographic evidence of malignancy. A 1 year screening mammogram is recommended. Based on the Tyrer Cuzick model (a risk assessment model) the patient's lifetime risk is 1.9% and her 10 year risk is 0.0%. According to the ACR, ACS, and NCCN guidelines, an annual breast MRI exam elisabeth g with mammogram is recommended if the patient's lifetime risk is 20% or greater. This exam was interpreted at Station ID: [id number]. NOTE: For mammograms, a report in lay terms will be sent to the patient. Approximately 15% of breast malignancies will not be visualized mammographically. In the management of a palpable breast mass, a negative mammogram must not discourage biopsy of a clinically suspicious lesion. Electronically Signed By: Dario hoff/bushra:06/29/2023 16:12:40 letter sent: No_Letter ACR BI-RADS Category 1: Negative 3341F PARENCHYMAL PATTERN: (A) - The breast(s) demonstrate(s) scattered fibroglandular densities. BI-RADS CATEGORY: (1) - 1 RECOMMENDATION: (ANNUAL) - Recommend routine annual screening mammography. [id number] 1 year screening LATERALITY: (B)
== END 2023-06-29 13:10 | disposition home or self-care (01) ==
LOC: DI.S 13:09
DX: Z12.31 Encounter for screening mammogram for malignant neoplasm of breast (principal); R92.323 Mammographic fibroglandular density, bilateral breasts; Z80.3 Family history of malignant neoplasm of breast

== ENCOUNTER 2023-07-07 09:51 | Outpatient (CLI) | payer MEDICARE, MEDICAID ==
--- NOTE | 2023-07-07 15:40 | XRAY Report ---
PROCEDURE: Foot 1-2V LT INDICATIONS: FOOT JOINT PAIN, LEFT TECHNIQUE: 2 views of the foot were acquired. COMPARISON: None. FINDINGS: Bones: Moderate hallux valgus and first MTP joint space narrowing. No acute fracture or traumatic sub luxation identified. Calcaneal enthesopathy. Mild degenerative changes elsewhere. Soft tissues: No suspicious calcifications. IMPRESSION: Hallux valgus and moderate first MTP degenerative changes. Mild degenerative changes elsewhere. If th ere is high concern for further derangement, consider MRI evaluation. Reviewed by: Danie Morgan MD on 07/07/2023 3:39 PM PDT Approved by: Danie Morgan MD on 07/07/2023 3:39 PM PDT Station ID: [id number]
--- NOTE | 2023-07-07 15:47 | XRAY Report ---
PROCEDURE: Lumbar Spine 2-3V INDICATIONS: BACK PAIN, LUMBAR, CHRONIC TECHNIQUE: 3 views of the lumbar spine were acquired. COMPARISON: None. FINDINGS: Bones: Moderate degenerative changes. Vertebral body heights are well-maintained. There is disc space height loss, facet arthropathy, and osteophytes. No traumatic subluxation. Moderate rightward spinal curvature centered at L1-L2. Soft tissues: Vascular calcifications are seen. Possible calcified fibroid in the pelvis. Partially seen hip arthrosis. Moderate fecal loading. IMPRESSION: Moderate spondylosis. If there is high concern for further derangement, consider MRI evaluation. Reviewed by: Danie Morgan MD on 07/07/2023 3:46 PM PDT Approved by: Danie Morgan MD on 07/07/2023 3:46 PM PDT Station ID: [id number]
== END 2023-07-07 09:52 | disposition home or self-care (01) ==
LOC: DI.S 09:51
PROVIDERS: ATTEND Nurse Practitioner Family
DX: M47.816 Spondylosis without myelopathy or radiculopathy, lumbar region (principal); M19.072 Primary osteoarthritis, left ankle and foot; M20.12 Hallux valgus (acquired), left foot

== ENCOUNTER 2023-07-11 07:00 | Outpatient (CLI) | payer MEDICARE, MEDICAID ==
[2023-07-11 17:55] LABS: BILIRUBIN,URINE NEGATIVE (NEGATIVE); CLARITY,URINE SL. CLOUDY (CLEAR); GLUCOSE, URINE (UA) 100 mg/dL (NEGATIVE); KETONES,URINE (UA) NEGATIVE (NEGATIVE); PH,URINE 6.5 PH (5.0-7.5)
[2023-07-11 18:01] LABS: WBC,URINE >25 /HPF (0-5)
[2023-07-11 18:02] LABS: BACTERIA,URINE Moderate /HPF (None Seen); SQUAMOUS EPITHELIAL CELL,UR FEW Squamous (<= Few); YEAST,URINE PRESENT
== END 2023-07-11 23:59 | disposition home or self-care (01) ==
LOC: LAB.S 07:00
PROVIDERS: ATTEND Emergency Medicine
DX: R30.0 Dysuria (principal)
CPT/HCPCS: 81001; 87086; 87181

== ENCOUNTER 2023-09-09 08:00 | Outpatient (CLI) | payer MEDICARE, MEDICAID | END 2023-09-09 23:59 | disposition home or self-care (01) | LOC: LAB 08:00 | PROVIDERS: ATTEND Urology | DX: R39.11 Hesitancy of micturition (principal) | CPT/HCPCS: 87086 ==

== ENCOUNTER 2023-10-16 14:07 | Outpatient (CLI) | payer MEDICARE, MEDICAID ==
--- NOTE | 2023-10-16 17:17 | MRI Report ---
PROCEDURE: Lumbar Spine WO INDICATIONS: LOW BACK PAIN TECHNIQUE: Noncontrast sagittal T1 spin echo and T2 fast echo, sagittal STIR, axial T1 and T2 fast spin echo thr ough the lumbar spine. In cases with scoliosis, additional coronal T2 fast spin echo may be performe d. COMPARISON: None. FINDINGS: Image quality: Excellent. Alignment and Curvature: There is trace retrolisthesis of L2 on L3, L3 on L4. Bone Marrow: Marrow is of normal overall signal. No acute vertebral body compression fractures. Spinal Cord: Conus medullaris terminates at the L1 level. Visualized cord demonstrates normal signa l and size. Paraspinous Soft Tissues: No paravertebral masses. Multiple T2 hyperintensities are present within the kidneys and partially visualized liver most consistent with simple cysts. Discs Multilevel moderate to severe disc desiccation most significant at L2-3, L3-4. T12-L1: No disc bulge, spinal stenosis or foraminal narrowing. L1-L2: Minimal disc bulge without spinal stenosis or foraminal narrowing. Facet and ligamentum fla vum hypertrophy with epidural lipomatosis. L2-L3: Mild disc bulge with moderate spinal stenosis. Moderate bilateral foraminal narrowing with facet and ligamentum flavum hypertrophy. L3-L4: Mild disc bulge with mild spinal stenosis. Moderate bilateral foraminal narrowing with facet and ligamentum flavum hypertrophy. L4-L5: Mild disc bulge with mild spinal stenosis. Mild bilateral foraminal narrowing with facet and ligamentum flavum hypertrophy, right greater than left. L5-S1: Mild disc bulge without spinal stenosis. No foraminal narrowing. Facet hypertrophy. IMPRESSION: Multilevel disc bulges. Mild to moderate spinal stenosis most severe at L2-3 secondary to disc bulge with contributing effect of facet/ligament flavum arthropathy. Moderate bilateral foraminal narrowing most severe at L2-3 and L3-4 secondary to facet/ligament flavu m arthropathy. Reviewed by: Rox Guzman MD on 10/16/2023 5:16 PM PDT Approved by: Rox Guzman MD on 10/16/2023 5:16 PM PDT Station ID: [id number]
== END 2023-10-16 14:08 | disposition home or self-care (01) ==
LOC: DI 14:07
PROVIDERS: ATTEND Nurse Practitioner Family
DX: M51.36 Other intervertebral disc degeneration, lumbar region (principal); M48.061 Spinal stenosis, lumbar region without neurogenic claudication; M51.37 Other intervertebral disc degeneration, lumbosacral region; M47.817 Spondylosis without myelopathy or radiculopathy, lumbosacral region; M24.28 Disorder of ligament, vertebrae

== ENCOUNTER 2023-10-30 07:53 | Outpatient (CLI) | payer MEDICARE, MEDICAID ==
[2023-10-30 15:36] LABS: BASOPHILS # (AUTO) 0.1 10^3/uL (0.0-0.1); EOSINOPHILS # (AUTO) 0.3 10^3/uL (0.0-0.7); EOSINOPHILS % (AUTO) 4.9 %; HGB - HEMOGLOBIN 14.7 g/dL (12.0-16.0); LYMPHOCYTES # (AUTO) 1.6 10^3/uL (1.5-3.5); LYMPHOCYTES % (AUTO) 22.5 %; MEAN CORPUSCULAR HEMOGLOBIN 32.5 pg (27.0-31.0); MEAN CORPUSCULAR HGB CONC 34.2 g/dL (32.0-36.0); MEAN CORPUSCULAR VOLUME 94.9 fL (81.0-99.0); MEAN PLATELET VOLUME 10.1 fL (7.9-10.8); MONOCYTES # (AUTO) 0.6 10^3/uL (0.0-1.0); MONOCYTES % (AUTO) 9.1 %; NEUTROPHILS # (AUTO) 4.3 10^3/uL (1.5-6.6); NEUTROPHILS % (AUTO) 62.4 %; PLT - PLATELET COUNT 204 10^3/uL (130-450); RED BLOOD COUNT 4.53 10^6/uL (4.20-5.40); RED CELL DISTRIBUTION WIDTH 12.3 % (12.0-15.0); WHITE BLOOD COUNT 6.9 x10^3/uL (4.8-10.8)
[2023-10-30 15:55] LABS: ALBUMIN/GLOBULIN RATIO 1.8 (1.0-2.2); ALKALINE PHOSPHATASE 67 IU/L (42-121); ALT ALANINE AMINOTRANSFERASE 14 IU/L (10-60); AST ASPARTATE AMINOTRANSFERASE 15 IU/L (10-42); BILIRUBIN,TOTAL 0.9 mg/dL (0.2-1.0); BUN - BLOOD UREA NITROGEN 21 mg/dL (6-20); CALCIUM 9.4 mg/dL (8.5-10.3); CARBON DIOXIDE - CO2 28 mmol/L (21-32); CHLORIDE 107 mmol/L (101-111); CHOL/HDL RATIO 3.1 (<4.4); CHOLESTEROL 113 mg/dL; CREATININE 0.9 mg/dL (0.6-1.3); GFR - MDRD 60 (>89); GLUCOSE 112 mg/dL (74-104); HDL CHOLESTEROL 36 mg/dL; LDL CHOLESTEROL,CALCULATED 57 mg/dL; LDL/HDL RATIO 1.6 (<4.4); POTASSIUM 3.6 mmol/L (3.5-4.5); SODIUM 140 mmol/L (135-145); TOTAL PROTEIN 6.2 g/dL (6.4-8.9); TRIGLYCERIDES 100 mg/dL; VLDL CHOLESTEROL 20 mg/dL
[2023-10-30 16:09] LABS: THYROID STIMULATING HORMONE 1.74 uIU/mL (0.34-5.60)
[2023-10-30 20:38] LABS: ESTIMATED AVERAGE GLUCOSE 100 mg/dL (70-100); HEMOGLOBIN A1c% 5.1 % (4.27-6.07)
== END 2023-10-30 07:54 | disposition home or self-care (01) ==
LOC: LAB.S 07:53
PROVIDERS: ATTEND Nurse Practitioner Family
DX: R73.03 Prediabetes (principal); E78.1 Pure hyperglyceridemia; E66.9 Obesity, unspecified
CPT/HCPCS: 36415; 80053; 80061; 83036; 83721; 84443; 85025

== ENCOUNTER 2023-11-06 15:00 | Outpatient (CLI) | payer MEDICARE, MEDICAID ==
--- NOTE | 2023-11-06 21:33 | DEXA Report ---
PROCEDURE: Dexa Spine and/or Hip INDICATIONS: POST MENOPAUSAL TECHNIQUE: Dual energy x-ray absorptiometry (DXA) was performed on a [email or web address] System. Regions measur ed are the AP Spine, femoral neck, and if needed forearm. COMPARISON: None FINDINGS: Lumbar Spine: Bone Mineral Density: 1.249 g/cm/cm,T score: 0.6. Left Femoral Neck: Bone Mineral Density: 0.809 g/cm/cm, T score: -1.7. Left Hip: Bone Mineral Density: 0.888 g/cm/cm,T score: -0.9. FRAX risk factors: None given. 10 year risk of major osteoporotic fracture: 13.6% major osteoporotic fracture = hip, clinical vertebral, proximal humerus, distal forearm 10 year risk of hip fracture: 3.4% (T score greater or equal to -1.0: NORMAL) (T score from -1.1 to -2.4: OSTEOPENIA) (T score less than or equal to -2.5 to: OSTEOPOROSIS) Impression: By WHO criteria, this patient has low bone density (osteopenia). The 10 year risk of a major osteoporotic fracture is 13.6% and of a hip fracture is 3.4%. Patients with diagnosis of osteoporosis or osteopenia should have regular bone mineral density assess ment. For those eligible for Medicare, routine testing is allowed once every 2 years. Testing frequ ency can be increased for patients who have rapidly progressing disease or for those who are receivin g medical therapy to restore bone mass. Reviewed by: Afua Romero MD on 11/06/2023 9:32 PM PDT Approved by: Afua Romero MD on 11/06/2023 9:32 PM PDT Station ID: [id number]
== END 2023-11-06 15:01 | disposition home or self-care (01) ==
LOC: DI 15:00
PROVIDERS: ATTEND Nurse Practitioner Family
DX: Z13.820 Encounter for screening for osteoporosis (principal); M85.88 Other specified disorders of bone density and structure, other site; Z78.0 Asymptomatic menopausal state